=== PATIENT | female | born 1965 | race Caucasian/White ===

== ENCOUNTER 2019-03-17 21:25 | Emergency (ER) | payer SELFPAY ==
[2019-03-17] MEDS ORDERED: Sucralfate 1 GM/10 ML UDCUP ONE ×2 (21:41→21:44)
[2019-03-17 22:01] LABS: #Basophils 0.1 thou/uL (0.0-0.2); #Eosinphils 0.3 thou/uL (0.0-0.7); #Lymphocytes 4.1 thou/uL (1.20-3.40); #Monocytes 1.1 thou/uL (0.11-0.59); #Neutrophils 13.6 thou/uL (1.40-6.50); %Basophils 0.5 % (0.0-1.0); %Eosinophils 1.3 % (0.0-10.0); %Lymphocytes 21.4 % (21.0-51.0); %Monocytes 5.9 % (0.0-10.0); %Neutrophils 70.9 % (42.0-75.0); Hemoglobin 16.7 g/dL (12.0-16.0); Mean Corpuscular HGB CONC 31.1 g/dL (32.0-36.0); Mean Corpuscular Volume 93.3 fL (78.0-98.0); Mean Platelet Volume 8.7 fL (7.4-10.4); Platelet Count 281 thou/uL (130-400); RBC Distribution Width 12.4 % (11.5-14.5); Red Blood Cell (RBC) Count 5.77 mill/uL (4.20-5.40); White Blood Cell (WBC) Count 19.2 thou/uL (4.8-10.8)
[2019-03-17 22:21] LABS: ALT (SGPT) 18 U/L (8-55); AST (SGOT) 28 U/L (5-34); Alkaline Phosphatase 100 U/L (40-150); Anion Gap 12 mmol/L (10-20); BUN (Urea Nitrogen) 6 mg/dL (9.8-20.1); Bilirubin, Total 0.4 mg/dL (0.2-1.2); Calc. Creatinine Clearance 0 mL/min (70-130); Calcium 9.2 mg/dL (7.8-10.44); Carbon Dioxide 29 mmol/L (22-29); Chloride 106 mmol/L (98-107); Estimated GFR-MDRD 87; Globulin 2.9 g/dL (2.4-3.5); Glucose 115 mg/dL (70-105); Lipase 8 U/L (8-78); Potassium 3.9 mmol/L (3.5-5.1); Protein, Total 6.9 g/dL (6.0-8.3); Sodium 143 mmol/L (136-145)
[2019-03-17] MEDS ORDERED: Morphine 4 MG/ML VIAL ONE (22:29)
[2019-03-17] MEDS ORDERED: Ondansetron PF 4 MG/2 ML Vial ONE (22:29)
--- NOTE | 2019-03-17 23:05 | CT ---
CT ABDOMEN AND PELVIS WITHOUT IV CONTRAST: 03/17/19 Axial tomograms obtained without IV enhancement. INDICATIONS: Abdominal pain. No comparison. Lung bases clear. The liver is unremarkable. The spleen appears surgically absent. Small residual splenule in the left upper quadrant is noted. Pancreas unremarkable. Adrenal glands normal. Kidneys unremarkable. No evidence of hydronephrosis. Ureters appear normal caliber. Urinary bladder i s contracted and not well evaluated. Small bowel loops are normal caliber. Appendix appears normal. Colon unremarkable. Aorta normal calib er. No adenopathy. Numerous tiny calcified gallstones are seen dependently in a mildly distended gallbladder. The pelvic structures are unremarkable. The uterus and adnexa appear unremarkable. IMPRESSION: 1. Cholelithiasis. 2. No acute intra-abdominal process. 3. There is an anterior abdominal wall hernia just to the left of the umbilicus with mesenteric fat herniating into the subcutaneous tissues. POS: OFF
== END 2019-03-17 23:24 | disposition home or self-care (01) ==
LOC: ERS 21:25
DX: K80.80 Other cholelithiasis without obstruction (principal); F41.9 Anxiety disorder, unspecified; F32.9 Major depressive disorder, single episode, unspecified; Z71.6 Tobacco abuse counseling; F17.210 Nicotine dependence, cigarettes, uncomplicated
CPT/HCPCS: 36415; 74176; 80053; 83690; 84484; 85025; 93005; 99406; J2270; J2405